=== PATIENT | female | born 1960 | race Caucasian/White ===

== ENCOUNTER 2018-01-01 16:08 | Emergency (ER) | payer MEDICARE, MEDICAID ==
[2018-01-01 16:12] VITALS: BMI 36.5
[2018-01-01 16:15] VITALS: BP 131/77; PULSE 67; RESP 18; TEMP 98.5; O2SAT 95
[2018-01-01 16:44] LABS: INR 1.1; PROTHROMBIN TIME 11.9 SECONDS (9.7-12.2)
--- NOTE | 2018-01-01 16:53 | C.PDOC ---
History Of Present Illness 57 y/o female sent to ED by PMD for abnormal PT/PTT, INR lab results. She denies taking any anti-coagulants. Denies any active physical complaints. Time Seen by Provider: 01/01/18 16:50 Chief Complaint (Nursing): Abnormal Labs History Per: Patient History/Exam Limitations: no limitations Past Medical History Reviewed: Historical Data, Nursing Documentation, Vital Signs Vital Signs: Last Vital Signs Temp 98.5 F 01/01/18 16:12 Pulse 67 01/01/18 16:12 Resp 18 01/01/18 16:12 BP 131/77 01/01/18 16:12 Pulse Ox 95 01/01/18 17:29 - Medical History PMH: HTN Family History: States: Unknown Family Hx - Social History Hx Alcohol Use: No Hx Substance Use: No - Immunization History Hx Tetanus Toxoid Vaccination: No Hx Influenza Vaccination: No Hx Pneumococcal Vaccination: No Review Of Systems Except As Marked, All Systems Reviewed And Found Negative. Constitutional: Negative for: Fever, Chills Cardiovascular: Negative for: Chest Pain Respiratory: Negative for: Shortness of Breath Physical Exam - Physical Exam Appears: Non-toxic, No Acute Distress Skin: Normal Color, Warm, Dry Head: Atraumatic, Normacephalic Eye(s): bilateral: Normal Inspection Oral Mucosa: Moist Cardiovascular: Rhythm Regular Respiratory: Normal Breath Sounds, No Rales, No Rhonchi, No Wheezing Gastrointestinal/Abdominal: Soft, No Tenderness Extremity: Normal ROM Neurological/Psych: Oriented x3, Normal Speech ED Course And Treatment O2 Sat by Pulse Oximetry: 95 Medical Decision Making Medical Decision Making: referred for VERY abnormal INR in pre-op testing as opt INR 1.1 here, no h/o nor present anticoagulation suspect lab error. Disposition Doctor Will See Patient In The: Office Counseled Patient/Family Regarding: Studies Performed, Diagnosis - Disposition Referrals: Bandar Arvizu MD [Medical Doctor] - Disposition: HOME/ ROUTINE Disposition Time: 16:52 Condition: GOOD Additional Instructions: INR 1.1 (NORMAL) the prior ABNORMAL labs results INR was probably a lab error No further action required. Forms: General Discharge Instructions, [facility] ([facility]ana) - Clinical Impression Clinical Impression: Abnormal laboratory test - Scribe Statement The provider has reviewed the documentation as recorded by the Scribe KP All medical record entries made by the Scribe were at my direction and personally dictated by me. I have reviewed the chart and agree that the record accurately reflects my personal performance of the history, physical exam, medical decision making, and the department course for this patient. I have also personally directed, reviewed, and agree with the discharge instructions and disposition.
== END 2018-01-01 17:03 | disposition home or self-care (01) ==
LOC: C.ER 16:08
DX: R79.1 Abnormal coagulation profile (principal)